=== PATIENT | male | born 1960 | race Caucasian/White ===

== ENCOUNTER 2017-12-27 11:52 | Inpatient (IN) | payer MEDICAID ==
[~2017-12-27] VITALS: Ht 162.6 cm; Wt 63.5 kg
[2017-12-27 12:16] VITALS: BP 114/84
[2017-12-27] MEDS ORDERED: cefTRIAXone 1 GM in NS 55 ML IV STA (12:25)
[2017-12-27] MEDS ORDERED: Albuterol ud Inhalation HHN ONE (12:30)
[2017-12-27] MEDS ORDERED: Morphine Sulfate 2mg/ml Inj IVP ONE (12:30)
[2017-12-27] MEDS ORDERED: Ipratropium 0.02% Inh Soln 2.5ml UD HHN ONE (12:30)
[2017-12-27 13:01] LABS: HEMOGLOBIN 15.4 G/DL (14.2-18.0); MEAN CORPUSCULAR VOLUME 96 FL (80-99); PLATELET COUNT 74 K/UL (150-450); RED BLOOD COUNT 4.49 M/UL (4.70-6.10); RED CELL DISTRIBUTION WIDTH 11.7 % (11.6-14.8); WHITE BLOOD COUNT 10.3 K/UL (4.8-10.8)
[2017-12-27 13:11] LABS: ANION GAP 11 mmol/L (5-15); BLOOD UREA NITROGEN 12 mg/dL (7-18); CALCIUM 8.7 MG/DL (8.5-10.1); CARBON DIOXIDE 27 MMOL/L (21-32); CHLORIDE 93 MMOL/L (98-107); POTASSIUM 3.3 MMOL/L (3.5-5.1); SODIUM 131 MMOL/L (136-145)
[2017-12-27 13:13] LABS: INR 1.1 (0.9-1.1)
[2017-12-27] MEDS ORDERED: NS 1000ml 1,900 ML IVLG ONE (13:30)
[2017-12-27 13:31] LABS: ALANINE AMINOTRANSFERASE 33 U/L (12-78); ALBUMIN/GLOBULIN RATIO 0.6 (1.0-2.7); ALKALINE PHOSPHATASE 75 U/L (46-116); ASPARTATE AMINO TRANSFERASE 65 U/L (15-37); BILIRUBIN,TOTAL 1.6 MG/DL (0.2-1.0); CREATINE KINASE 166 U/L (26-308)
[2017-12-27 13:32] LABS: BILIRUBIN,DIRECT 0.7 MG/DL (0.0-0.3)
[2017-12-27 14:00] VITALS: BP 105/76
[2017-12-27] MEDS ORDERED: TEGRETOL100 MG/5 M PO (15:07)
--- NOTE | 2017-12-27 15:08 | Emergency Room Report ---
History of Present Illness General Chief Complaint: Chest Pain Source: Patient Present Illness HPI Patient with several days of not feeling well. Since yesterday, increased cough , not productive, chills, fevers, dyspnea. Tried taking ibuprofen with some help - last dose 6 am. Pain is pleuritic in chest and back, 04/12 (though looks more distressed by discomfort) - aching. Possible wheezing. 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 Never with pneumonia or ill in this way. Slightly loose stools. H/O seizures, well controlled on Tegretal. Denies diabetes or HTN. Does drink alcohol, not daily. Also daily smoker. No rashes, dysuria. No ill contacts. Allergies: Coded Allergies: No Known Allergies (Unverified , 12/27/17) Patient History Past Medical History: see triage record Social History: Reports: smoking, alcohol use Social History Narrative with daughters Reviewed Nursing Documentation: PMH: Agreed, PSxH: Agreed Nursing Documentation-PMH Past Medical History: No Stated History Review of Systems All Other Systems: negative except mentioned in HPI Physical Exam Vital Signs Date Time Temp Pulse Resp B/P (MAP) Pulse Ox O2 Delivery O2 Flow Rate FiO2 12/27/17 12:06 99.0 120 18 120/80 94 Room Air 99.0 12/27/17 12:43 21 12/27/17 14:00 1.0 Sp02 EP Interpretation: reviewed, abnormal - reviewed as low as interpreted by me General Appearance: GCS 15, mild distress, other - ill appear, hot to touch Head: normocephalic, atraumatic Eyes: bilateral eye normal inspection, bilateral eye PERRL ENT: moist mucus membranes Neck: supple Respiratory: rales - R, wheezing, expiration Cardiovascular #1: tachycardia Cardiovascular #2: 2+ radial (R) Gastrointestinal: normal inspection, non tender, no mass, non-distended, decreased bowel sounds Musculoskeletal: back normal, gait/station normal, normal range of motion Neurologic: alert, oriented x3, grossly normal Psychiatric: mood/affect normal Skin: normal inspection, other - hot Medical Decision Making Diagnostic Impression: Primary Impression: Pneumonia Qualified Codes: J18.1 - Lobar pneumonia, unspecified organism Additional Impression: Elevated lactic acid level ER Course Patient presents with fever, cough and chest pain. DDx: pneumonia, sepsis, bronchitis, AMI. Evaluation with EKG, CXR, labs including BC and lactate. Treatment with IV hydration, analgesia, albuterol. High suspicion, will rx antibiotics. EKG without injury. CXR with wedge infiltrate RUL. Labs with elevated WBC and lactate. Potassium slightly low. Improved with treatment, though still with pain. Respirations improved. Admit med Dr. Bravo. Laboratory Tests Test 12/27/17 12:40 White Blood Count 10.3 K/UL (4.8-10.8) Red Blood Count 4.49 M/UL (4.70-6.10) L Hemoglobin 15.4 G/DL (14.2-18.0) Hematocrit 43.0 % (42.0-52.0) Mean Corpuscular Volume 96 FL (80-99) Mean Corpuscular Hemoglobin 34.2 PG (27.0-31.0) H Mean Corpuscular Hemoglobin Concent 35.7 G/DL (32.0-36.0) Red Cell Distribution Width 11.7 % (11.6-14.8) Platelet Count 74 K/UL (150-450) L Mean Platelet Volume 7.8 FL (6.5-10.1) Neutrophils (%) (Auto) % (45.0-75.0) Lymphocytes (%) (Auto) % (20.0-45.0) Monocytes (%) (Auto) % (1.0-10.0) Eosinophils (%) (Auto) % (0.0-3.0) Basophils (%) (Auto) % (0.0-2.0) Differential Total Cells Counted 100 Neutrophils % (Manual) 74 % (45-75) Lymphocytes % (Manual) 9 % (20-45) L Monocytes % (Manual) 2 % (1-10) Eosinophils % (Manual) 0 % (0-3) Basophils % (Manual) 0 % (0-2) Band Neutrophils 15 % (0-8) H Platelet Estimate Decreased L Platelet Morphology Normal Red Blood Cell Morphology Normal Prothrombin Time 11.2 SEC (9.30-11.50) Prothrombin Time INR 1.1 (0.9-1.1) PTT 33 SEC (23-33) Sodium Level 131 MMOL/L (136-145) L Potassium Level 3.3 MMOL/L (3.5-5.1) L Chloride Level 93 MMOL/L (98-107) L Carbon Dioxide Level 27 MMOL/L (21-32) Anion Gap 11 mmol/L (5-15) Blood Urea Nitrogen 12 mg/dL (7-18) Creatinine 1.0 MG/DL (0.55-1.30) Estimate Glomerular Filtration Rate > 60 mL/min (>60) Glucose Level 122 MG/DL (74-106) H Lactic Acid Level 3.40 mmol/L (0.66-2.22) H Calcium Level 8.7 MG/DL (8.5-10.1) Total Bilirubin 1.6 MG/DL (0.2-1.0) H Direct Bilirubin 0.7 MG/DL (0.0-0.3) H Aspartate Amino Transferase (AST) 65 U/L (15-37) H Alanine Aminotransferase (ALT) 33 U/L (12-78) Alkaline Phosphatase 75 U/L (46-116) Total Creatine Kinase 166 U/L (26-308) Troponin I 0.000 ng/mL (0.000-0.056) Pro-B-Type Natriuretic Peptide 816 pg/mL (0-125) H Total Protein 7.8 G/DL (6.4-8.2) Albumin 3.0 G/DL (3.4-5.0) L Globulin 4.8 g/dL Albumin/Globulin Ratio 0.6 (1.0-2.7) L EKG Diagnostic Results Rate: tachycardiac ST Segments: no acute changes Rhythm Strip Diag. Results EP Interpretation: yes Rhythm: no PVC's, no ectopy, other - ST Chest X-Ray Diagnostic Results Chest X-Ray Diagnostic Results : Chest X-Ray Ordered: Yes # of Views/Limited/Complete: 1 View Indication: Other Interpretation: no effusion, no pneumothorax, other - RUL infiltrate Impression: Other Electronically Signed by: Vickey Harvey MD Last Vital Signs Date Time Temp Pulse Resp B/P (MAP) Pulse Ox O2 Delivery O2 Flow Rate FiO2 12/27/17 20:13 103 18 97 Nasal Cannula 2.0 28 12/27/17 20:00 98.9 120/81 98.9 Status: improved Disposition: ADMITTED INPATIENT Condition: Serious Referrals: NOT CHOSEN SELENA/,REFERRING (PCP) Vickey Harvey M.D. Dec 27, 2017 15:08
[2017-12-27 16:00] VITALS: BP 105/73
[2017-12-27] MEDS ORDERED: Norco 5mg/325mg tab ORAL PRN (16:45)
[2017-12-27] MEDS ORDERED: HYDROcodone/Acetamin 10/325 tab ORAL PRN (16:45)
[2017-12-27] MEDS: Azithromycin 500 MG in D5W 275 ML IV SCH (18:10)
[2017-12-27 20:00] VITALS: BP 120/81
[2017-12-27] MEDS: Albuterol/Ipratropium 3ml neb HHN SCH (20:00)
[2017-12-27 22:40] LABS: APPEARANCE,URINE CLEAR; BILIRUBIN, URINE NEGATIVE (NEGATIVE); GLUCOSE, URINE (UA) NEGATIVE (NEGATIVE); KETONES,URINE NEGATIVE (NEGATIVE); LEUKOCYTE ESTERASE ,URINE NEGATIVE (NEGATIVE); NITRITE,URINE NEGATIVE (NEGATIVE); PH,URINE 7 (4.5-8.0); PROTEIN,URINE 1+ (NEGATIVE); UROBILINOGEN,URINE 4 MG/DL (0.0-1.0)
[2017-12-27 22:44] LABS: COLOR,URINE YELLOW
[2017-12-28] VITALS: BP 134/82
[2017-12-28] MEDS: Albuterol/Ipratropium 3ml neb HHN SCH ×3 (01:28→13:45)
[2017-12-28 04:00] VITALS: BP 129/76
[2017-12-28 08:00] VITALS: BP 111/80
[2017-12-28 08:53] LABS: HEMATOCRIT 34.9 % (42.0-52.0); HEMOGLOBIN 12.6 G/DL (14.2-18.0); MEAN CORPUSCULAR VOLUME 96 FL (80-99); PLATELET COUNT 53 K/UL (150-450); RED BLOOD COUNT 3.64 M/UL (4.70-6.10); RED CELL DISTRIBUTION WIDTH 11.8 % (11.6-14.8); WHITE BLOOD COUNT 7.1 K/UL (4.8-10.8)
[2017-12-28] MEDS ORDERED: Heparin 5000 units/ml inj SUBQ SCH (09:00)
[2017-12-28 09:16] LABS: ALANINE AMINOTRANSFERASE 20 U/L (12-78); ALBUMIN 2.1 G/DL (3.4-5.0); ALBUMIN/GLOBULIN RATIO 0.6 (1.0-2.7); ALKALINE PHOSPHATASE 56 U/L (46-116); ANION GAP 8 mmol/L (5-15); ASPARTATE AMINO TRANSFERASE 29 U/L (15-37); BILIRUBIN,TOTAL 0.9 MG/DL (0.2-1.0); BLOOD UREA NITROGEN 8 mg/dL (7-18); CALCIUM 7.9 MG/DL (8.5-10.1); CARBON DIOXIDE 25 MMOL/L (21-32); CHLORIDE 97 MMOL/L (98-107); CREATININE 0.9 MG/DL (0.55-1.30); SODIUM 130 MMOL/L (136-145)
[2017-12-28 09:31] LABS: POTASSIUM 2.6 MMOL/L (3.5-5.1)
--- NOTE | 2017-12-28 09:54 | Diagnostic Imaging Report ---
Indication: Reason For Exam: COUGH Technique: XRAY Chest 1v Comparison:None Findings: There is opacification of a portion of the right upper lobe. Heart is normal in size. Remaining lungs are clear. No pleural fluid. Hill-Sachs deformity of the left shoulder is noted, likely from previous anterior dislocation. Impression: Right upper lobe partial consolidation consistent with pneumonia. Hill-Sachs deformity in the left shoulder consistent with previous anterior dislocation.
--- NOTE | 2017-12-28 09:55 | Diagnostic Imaging Report ---
Indication: Reason For Exam: SOB Technique: XRAY Chest 1v. Comparison: 12/27/2017 Findings: The cardiomediastinal silhouette is unchanged. Right upper lobe partial consolidation is again seen. Impression: Right upper lobe pneumonia. Lateral view would be helpful to confirm that this is in the lobe rather than the superior portion of the lower lobe. No significant change from prior examination.
[2017-12-28 12:00] VITALS: BP 112/82
[2017-12-28] MEDS ORDERED: carBAMazepine 200mg tab ORAL SCH (12:00)
--- NOTE | 2017-12-28 12:22 | History and Physical ---
History of Present Illness General Date patient seen: Dec 28, 2017 Reason for Hospitalization: PNA Present Illness HPI 57 y/o male with a PMH of seizures on AED (last sz 10/2017) presented to ED yesterday with intermittent chest pain, sob, cough and subjective fevers x 2 days. Also reports nausea with emesis x 1 2 days ago that was NBNB. In hospital , EKG showed sinus tachycardia and initial troponin was negative. Patient was noted to have right upper lobe partial consolidation consistent with pneumonia and was started on IV ceftriaxone and azithromycin. Patient denies any ill contacts. Patient currently reports SOB but with improvement. States chest pain is non-radiating and is intermittent in nature upon deep inspirations. Reports subjective fevers and chills, with Tmax in hospital 99.0. Currently denies nausea, vomiting, abdominal pain, seizures, headaches. Reports compliance with his seizure medications. Reports occasional alcohol use. Denies illicit drug use or tobacco. Allergies: Coded Allergies: No Known Allergies (Unverified , 12/27/17) Medication History Miscellaneous Medications Carbamazepine (Tegretol), 200 MG PO, (Reported) Patient History Limited by: language barrier History Provided By: Patient, Family Member Healthcare decision maker Resuscitation status Advanced Directive on File Review of Systems Constitutional: Reports: chills, fever, weakness Eye: Reports: no symptoms ENT: Reports: no symptoms Respiratory: Reports: cough, shortness of breath Cardiovascular: Reports: chest pain Gastrointestinal: Reports: no symptoms Genitourinary: Reports: no symptoms Musculoskeletal: Reports: no symptoms Skin: Reports: no symptoms Psychiatric: Reports: no symptoms Neurological: Reports: no symptoms Endocrine: Reports: no symptoms Hematologic/Lymphatic: Reports: no symptoms Physical Exam General Appearance: alert, mild distress HEENT: normocephalic, atraumatic Neck: non-tender, normal alignment, supple Respiratory/Chest: chest wall non-tender, decreased breath sounds Cardiovascular/Chest: normal peripheral pulses, normal rate, regular rhythm Abdomen: normal bowel sounds, non tender Skin Exam: normal pigmentation, warm/dry 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, no motor/sensory deficits, alert, oriented x 3 Last 24 Hour Vital Signs Date Time Temp Pulse Resp B/P (MAP) Pulse Ox O2 Delivery O2 Flow Rate FiO2 12/28/17 08:00 99.0 95 20 111/80 98 99.0 12/28/17 07:10 96 21 96 Nasal Cannula 2.0 28 12/28/17 07:08 93 20 95 Nasal Cannula 2.0 28 12/28/17 07:08 Nasal Cannula 2.0 28 12/28/17 07:08 28 12/28/17 07:07 95 Nasal Cannula 2.0 28 12/28/17 04:00 98.9 95 20 129/76 97 Nasal Cannula 2.0 98.9 12/28/17 04:00 Nasal Cannula 2.0 12/28/17 01:42 94 21 96 Nasal Cannula 2.0 28 12/28/17 01:28 28 12/28/17 01:27 94 21 96 Nasal Cannula 2.0 28 12/28/17 00:00 Nasal Cannula 2.0 12/28/17 00:00 99.1 98 21 134/82 97 99.1 12/27/17 20:13 103 18 97 Nasal Cannula 2.0 28 12/27/17 20:04 95 Nasal Cannula 2.0 28 12/27/17 20:04 Nasal Cannula 2.0 28 12/27/17 20:02 101 20 95 Nasal Cannula 2.0 28 12/27/17 20:00 98.9 73 21 120/81 96 98.9 12/27/17 20:00 Nasal Cannula 2.0 12/27/17 16:00 98.5 97 20 105/73 96 98.5 12/27/17 15:08 101.7 108 29 105/76 90 Nasal Cannula 1.0 21 101.7 12/27/17 14:00 101.7 108 29 105/76 90 Nasal Cannula 1.0 101.7 12/27/17 13:02 99.0 12/27/17 13:01 99.0 12/27/17 12:57 105 26 98 Room Air 21 12/27/17 12:55 112 27 Room Air 21 12/27/17 12:43 114 29 95 Room Air 21 Intake and Output 12/27/17 12/28/17 19:00 07:00 Intake Total 1055 ml 575 ml Balance 1055 ml 575 ml Intake Oral 0 ml 300 ml IV Total 1055 ml 275 ml # Voids 1 Laboratory Tests Test 12/27/17 12:40 12/27/17 18:50 12/27/17 22:20 12/28/17 08:25 White Blood Count 10.3 K/UL (4.8-10.8) 7.1 K/UL (4.8-10.8) Red Blood Count 4.49 M/UL (4.70-6.10) L 3.64 M/UL (4.70-6.10) L Hemoglobin 15.4 G/DL (14.2-18.0) 12.6 G/DL (14.2-18.0) L Hematocrit 43.0 % (42.0-52.0) 34.9 % (42.0-52.0) L Mean Corpuscular Volume 96 FL (80-99) 96 FL (80-99) Mean Corpuscular Hemoglobin 34.2 PG (27.0-31.0) H 34.5 PG (27.0-31.0) H Mean Corpuscular Hemoglobin Concent 35.7 G/DL (32.0-36.0) 36.0 G/DL (32.0-36.0) Red Cell Distribution Width 11.7 % (11.6-14.8) 11.8 % (11.6-14.8) Platelet Count 74 K/UL (150-450) L 53 K/UL (150-450) L Mean Platelet Volume 7.8 FL (6.5-10.1) 8.6 FL (6.5-10.1) Neutrophils (%) (Auto) % (45.0-75.0) % (45.0-75.0) Lymphocytes (%) (Auto) % (20.0-45.0) % (20.0-45.0) Monocytes (%) (Auto) % (1.0-10.0) % (1.0-10.0) Eosinophils (%) (Auto) % (0.0-3.0) % (0.0-3.0) Basophils (%) (Auto) % (0.0-2.0) % (0.0-2.0) Differential Total Cells Counted 100 100 Neutrophils % (Manual) 74 % (45-75) 79 % (45-75) H Lymphocytes % (Manual) 9 % (20-45) L 18 % (20-45) L Monocytes % (Manual) 2 % (1-10) 3 % (1-10) Eosinophils % (Manual) 0 % (0-3) 0 % (0-3) Basophils % (Manual) 0 % (0-2) 0 % (0-2) Band Neutrophils 15 % (0-8) H 0 % (0-8) Platelet Estimate Decreased L Decreased L Platelet Morphology Normal Normal Red Blood Cell Morphology Normal Normal Prothrombin Time 11.2 SEC (9.30-11.50) Prothromb Time International Ratio 1.1 (0.9-1.1) Activated Partial Thromboplast Time 33 SEC (23-33) Sodium Level 131 MMOL/L (136-145) L 130 MMOL/L (136-145) L Potassium Level 3.3 MMOL/L (3.5-5.1) L 2.6 MMOL/L (3.5-5.1) *L Chloride Level 93 MMOL/L (98-107) L 97 MMOL/L (98-107) L Carbon Dioxide Level 27 MMOL/L (21-32) 25 MMOL/L (21-32) Anion Gap 11 mmol/L (5-15) 8 mmol/L (5-15) Blood Urea Nitrogen 12 mg/dL (7-18) 8 mg/dL (7-18) Creatinine 1.0 MG/DL (0.55-1.30) 0.9 MG/DL (0.55-1.30) Estimat Glomerular Filtration Rate > 60 mL/min (>60) > 60 mL/min (>60) Glucose Level 122 MG/DL (74-106) H 230 MG/DL (74-106) #H Lactic Acid Level 3.40 mmol/L (0.66-2.22) H 3.90 mmol/L (0.66-2.22) H Calcium Level 8.7 MG/DL (8.5-10.1) 7.9 MG/DL (8.5-10.1) L Total Bilirubin 1.6 MG/DL (0.2-1.0) H 0.9 MG/DL (0.2-1.0) Direct Bilirubin 0.7 MG/DL (0.0-0.3) H Aspartate Amino Transf (AST/SGOT) 65 U/L (15-37) H 29 U/L (15-37) Alanine Aminotransferase (ALT/SGPT) 33 U/L (12-78) 20 U/L (12-78) Alkaline Phosphatase 75 U/L (46-116) 56 U/L (46-116) Total Creatine Kinase 166 U/L (26-308) Troponin I 0.000 ng/mL (0.000-0.056) Pro-B-Type Natriuretic Peptide 816 pg/mL (0-125) H Total Protein 7.8 G/DL (6.4-8.2) 5.8 G/DL (6.4-8.2) L Albumin 3.0 G/DL (3.4-5.0) L 2.1 G/DL (3.4-5.0) L Globulin 4.8 g/dL 3.7 g/dL Albumin/Globulin Ratio 0.6 (1.0-2.7) L 0.6 (1.0-2.7) L Urine Color Yellow Urine Appearance Clear Urine pH 7 (4.5-8.0) Urine Specific [place] 1.005 (1.005-1.035) Urine Protein 1+ (NEGATIVE) H Urine Glucose (UA) Negative (NEGATIVE) Urine Ketones Negative (NEGATIVE) Urine Occult Blood 1+ (NEGATIVE) H Urine Nitrite Negative (NEGATIVE) Urine Bilirubin Negative (NEGATIVE) Urine Urobilinogen 4 MG/DL (0.0-1.0) H Urine Leukocyte Esterase Negative (NEGATIVE) Urine RBC 2-4 /HPF (0 - 0) H Urine WBC 0-2 /HPF (0 - 0) Urine Squamous Epithelial Cells None /LPF (NONE/OCC) Urine Bacteria Few /HPF (NONE) Test 12/28/17 08:30 Lactic Acid Level 2.80 mmol/L (0.66-2.22) H Microbiology Date/Time Source Procedure Growth Status 12/27/17 22:20 Sputum Gram Stain - Final Resulted 12/27/17 22:20 Sputum Sputum Culture Pending Resulted 12/27/17 20:23 Nasal Nares Influenza Types A,B Antigen (ASHLEY) - Final Complete Height (Feet): 5 Height (Inches): 4.00 Weight (Pounds): 140 Medications Current Medications Medications (Trade) Dose Ordered Sig/Levi Route PRN Reason Start Time Stop Time Status Last Admin Dose Admin Acetaminophen (Tylenol) 650 mg Q6H PRN ORAL Mild Pain/Temp > 100.5 12/27/17 16:45 01/26/18 16:44 Acetaminophen/ Hydrocodone Bitart ([place] 10/325) 1 tab Q4H PRN ORAL Severe Pain 12/27/17 16:45 01/03/18 16:44 Acetaminophen/ Hydrocodone Bitart ([place] 5/325) 1 tab Q4H PRN ORAL Moderate Pain (Pain Scale 4-6) 12/27/17 16:45 01/03/18 16:44 Albuterol/ Ipratropium (Albuterol/ Ipratropium) 3 ml Q6HRT HHN 12/27/17 19:00 01/01/18 18:59 12/28/17 07:08 Azithromycin 500 mg/Dextrose 275 ml @ 275 mls/hr Q24HRS IV 12/27/17 18:00 01/02/18 18:59 12/27/17 18:10 Carbamazepine (TEGretol) 200 mg Q12HR ORAL 12/28/17 12:00 01/27/18 11:59 Ceftriaxone Sodium 1 gm/ Sodium Chloride 55 ml @ 110 mls/hr Q24H IVPB 12/28/17 13:00 01/04/18 12:59 Ondansetron HCl (Zofran) 4 mg Q4H PRN IVP Nausea & Vomiting 12/27/17 16:45 01/26/18 16:44 Potassium Chloride 40 meq/ Dextrose 570 ml @ 125 mls/hr ONCE ONCE IVPB 12/28/17 13:30 12/28/17 18:03 Potassium Chloride 100 ml @ 100 mls/hr Q1H IVPB 12/28/17 11:15 12/28/17 13:14 12/28/17 11:25 Potassium Chloride (K-Dur) 40 meq ONCE ONCE ORAL 12/28/17 20:00 12/28/17 20:01 Sodium Chloride 1,000 ml @ 100 mls/hr Q10H IV 12/28/17 17:00 01/27/18 16:59 Assessment/Plan Problem List: (1) Sepsis ICD Codes: A41.9 - Sepsis, unspecified organism SNOMED: 15445368 (2) Hypokalemia ICD Codes: E87.6 - Hypokalemia SNOMED: 70945600 (3) Thrombocytopenia ICD Codes: D69.6 - Thrombocytopenia, unspecified SNOMED: 389943942 (4) Seizure disorder ICD Codes: G40.909 - Epilepsy, unspecified, not intractable, without status epilepticus SNOMED: 160947844 (5) Pneumonia ICD Codes: J18.9 - Pneumonia, unspecified organism SNOMED: 294054385 Qualifiers: Qualified Codes: J18.1 - Lobar pneumonia, unspecified organism (6) Chest pain ICD Codes: R07.9 - Chest pain, unspecified SNOMED: 29095214 Status: progressing Status Narrative - Admit to inpatient --> transfer to tele given chest pain and hypokalemia - Hematology consulted for thrombocytopenia (?bone marrow suppression with tegretol) - trend plt - will avoid heparin at this time - trend trops: 0.0 --> - repeat EKG NSR - cp likely 2/2 PNA but rule out ACS - HHN prn - f/u blood cultures x 2 - trend lactic acid - serial CXR, check lateral view - check ABGs - monitor and replete lytes prn - continue home tregretol 200mg PO qd Spent 55 minutes with >50% spent in care and coordination of patient. D/w patient, RN, family, and hematology regarding plan of care. Once patient is medically cleared, I anticipate the patient to be discharged to : home [place] Nicolas N.P. Dec 28, 2017 12:22
[2017-12-28] MEDS ORDERED: carBAMazepine 200mg tab ORAL ONE ×2 (12:30→13:00)
[2017-12-28] MEDS ORDERED: cefTRIAXone 1 GM in NS 55 ML IVPB SCH ×2 (13:00→17:00)
[2017-12-28] MEDS ORDERED: Potassium Chloride 40 MEQ in D5W 500ml 550 ML IVPB ONE (13:30)
[2017-12-28 15:54] VITALS: BP 110/75
--- NOTE | 2017-12-28 16:16 | Cardiology Report ---
APPROVED REPORT EKG Measurement Heart [id number] DC 130P68 [id number] Sinus tachycardia Possible Left atrial enlargement Left axis deviation Abnormal ECG
[2017-12-28] MEDS ORDERED: NS w/KCl 20mEq 1,000 ML IV SCH (17:00)
[2017-12-28] MEDS: Azithromycin 500 MG in D5W 275 ML IV SCH (18:05)
[2017-12-28] MEDS: NS w/KCl 20mEq 1,000 ML IV SCH ×2 (19:00→19:36)
[2017-12-28] MEDS ORDERED: Norco 5mg/325mg tab ORAL PRN (19:15)
[2017-12-28] MEDS ORDERED: HYDROcodone/Acetamin 10/325 tab ORAL PRN (19:15)
[2017-12-28 19:31] LABS: ANION GAP 8 mmol/L (5-15); BLOOD UREA NITROGEN 6 mg/dL (7-18); CALCIUM 8.2 MG/DL (8.5-10.1); CARBON DIOXIDE 25 MMOL/L (21-32); CHLORIDE 98 MMOL/L (98-107); CREATININE 0.9 MG/DL (0.55-1.30); SODIUM 131 MMOL/L (136-145)
[2017-12-28 20:00] VITALS: BP 110/73
--- NOTE | 2017-12-28 21:45 | Consultation ---
DATE OF CONSULTATION: 12/28/2017 HEMATOLOGY/ONCOLOGY CONSULTATION CONSULTING PHYSICIAN: Amauri Restrepo M.D. REFERRING PHYSICIAN: Beth Bravo M.D. REASON FOR CONSULTATION: Evaluation of thrombocytopenia. IDENTIFYING DATA: Dear Dr. Bravo, The patient is a pleasant 57-year-old male, first time here at [facility]. He has a past medical history, which is significant for seizures, on antiepileptics, at this time presents with fevers and chills that are subjective for the past several days with emesis for the past 1 to 2 days. He is admitted to the hospital. EKG performed shows sinus tachycardia. Initial troponin was negative, but noted to have a partial lobe consolidation consistent with pneumonia and began on antibiotics. Denies any ill contacts. His chest pain has been non-remitting. Reports occasional alcohol use. Denies any illicit drug use or tobacco. The patient noted to have thrombocytopenia, which is down trend at this time. Hematology Service consulted. PAST MEDICAL HISTORY: As noted above. ALLERGIES: No known drug allergies. MEDICATIONS: Carbamazepine and Tegretol. SOCIAL HISTORY: Occasional alcohol abuse. No illicit drug use. No tobacco. REVIEW OF SYSTEMS: CONSTITUTIONAL: Fever and chills have been reported. SKIN: No rashes, lumps, or itching. HEENT: No headache, hearing or vision changes. BREASTS: No lumps, pain, or discharge. PULMONARY: No cough, sputum, or shortness of breath. GASTROINTESTINAL: No nausea, vomiting, or diarrhea. GENITOURINARY: No dysuria, frequency, or urgency. MUSCULOSKELETAL: No joint swelling, muscle pain, or trauma. PHYSICAL EXAMINATION: GENERAL: No acute distress. VITAL SIGNS: Reviewed. PULMONARY: Decreased breath sounds. CARDIOVASCULAR: Regular rate. No S3 or S4. ABDOMEN: Soft, nontender, and nondistended. EXTREMITIES: No swelling or edema. LABORATORY AND DIAGNOSTIC DATA: Imaging, chest x-ray from today showed right upper lobe pneumonia, unchanged from the prior exam. Labs, WBC of 7.3, hemoglobin 12.6, hematocrit 35 and platelet count 248,000. ASSESSMENT AND RECOMMENDATIONS: 1. Thrombocytopenia, potentially secondary to infection such as pneumonia versus antibiotics that the patient is on. In addition, the patient may have cirrhosis. We will obtain ultrasound of the abdomen as well as hepatitis panel and HIV to evaluate further. The patient also on antiepileptics, which can contribute to thrombocytopenia. 2. Anemia due to underlying chronic disease. Continue to closely monitor at this time. 3. Subjective fever and chills, likely secondary to pneumonia. 4. Pneumonia, right upper lobe, likely community acquired. 5. Hypokalemia, replete potassium as needed. 6. Lactic acidosis, potentially secondary to dehydration versus pneumonia, infection, sepsis. I appreciate consultation. Amauri Restrepo M.D. DR: DESIRE JOB#: [id number] CC:
[2017-12-29] VITALS: BP 122/80
[2017-12-29] MEDS: Albuterol/Ipratropium 3ml neb HHN SCH ×5 (01:25→23:37)
[2017-12-29 04:00] VITALS: BP 127/82
[2017-12-29] MEDS: NS w/KCl 20mEq 1,000 ML IV SCH ×3 (06:00→17:00)
[2017-12-29 08:00] VITALS: BP 113/80
[2017-12-29 08:33] LABS: HEMATOCRIT 33.6 % (42.0-52.0); MEAN CORPUSCULAR VOLUME 96 FL (80-99); PLATELET COUNT 68 K/UL (150-450); RED CELL DISTRIBUTION WIDTH 11.7 % (11.6-14.8); WHITE BLOOD COUNT 4.8 K/UL (4.8-10.8)
[2017-12-29 08:51] LABS: ANION GAP 9 mmol/L (5-15); BLOOD UREA NITROGEN 5 mg/dL (7-18); CALCIUM 8.3 MG/DL (8.5-10.1); CARBON DIOXIDE 23 MMOL/L (21-32); CHLORIDE 103 MMOL/L (98-107); CREATININE 0.6 MG/DL (0.55-1.30); POTASSIUM 3.6 MMOL/L (3.5-5.1); SODIUM 135 MMOL/L (136-145)
[2017-12-29] MEDS ORDERED: carBAMazepine 200mg tab ORAL SCH ×2 (09:00)
--- NOTE | 2017-12-29 10:28 | Diagnostic Imaging Report ---
Indication:Abdominal pain Technique: Grayscale and duplex Doppler imaging of the abdomen performed. Comparison: None Findings: Study is very limited due to bowel gas. Main portal vein is patent by Doppler. Gallbladder is unremarkable. The liver appears slightly echogenic without obvious surface nodularity and is normal in size. Pancreas not well seen. Aorta is not well seen. There is a right 3 cm. renal cyst noted. There is no hydronephrosis. There is no ascites. No biliary ductal dilatation is appreciated. CBD is 3 mm. IMPRESSION: Diagnostically limited study. Probable fatty liver. Right renal cyst
[2017-12-29 12:00] VITALS: BP 114/73
--- NOTE | 2017-12-29 12:23 | Diagnostic Imaging Report ---
Indication: Dyspnea Comparison: 12/28/2017 2 views of the chest obtained. Dense right upper lobe consolidation demonstrated. No change seen. Heart size remains normal. IMPRESSION: Right upper lobe pneumonia. No change
--- NOTE | 2017-12-29 13:42 | Consultation ---
History of Present Illness General Date patient seen: Dec 29, 2017 Chief Complaint: Chest Pain Present Illness HPI 57 year old male with hx of smoking, ETOH , presented to ER with several days of not feeling well, cough, not productive, chills, fevers, dyspnea. Pain is pleuritic in chest and back, 6/10 CHAPMAN. Pt was tachycardic in ER and his CXR showed dense RUL. Pt is admitted to telemetry for tachycardia. Allergies: Coded Allergies: No Known Allergies (Unverified , 12/27/17) Medication History Miscellaneous Medications Carbamazepine (Tegretol), 200 MG PO, (Reported) Patient History Healthcare decision maker Resuscitation status Advanced Directive on File Past Medical/Surgical History Past Medical/Surgical History: (1) Seizure disorder Review of Systems Constitutional: Reports: fever, malaise Eye: Reports: no symptoms ENT: Reports: no symptoms Respiratory: Reports: no symptoms Physical Exam General Appearance: WD/WN Lines, tubes and drains: peripheral HEENT: normocephalic, atraumatic Neck: non-tender, normal alignment Respiratory/Chest: chest wall non-tender, lungs clear Cardiovascular/Chest: normal peripheral pulses, normal rate Abdomen: normal bowel sounds Genitourinary/Rectal: normal genital exam Extremities: normal range of motion Last 24 Hour Vital Signs Date Time Temp Pulse Resp B/P (MAP) Pulse Ox O2 Delivery O2 Flow Rate FiO2 12/29/17 13:03 86 21 99 Nasal Cannula 2.0 28 12/29/17 13:00 28 12/29/17 12:55 89 20 97 Nasal Cannula 2.0 12/29/17 12:00 97.8 72 19 114/73 96 Nasal Cannula 2.0 97.8 12/29/17 08:00 98.2 72 20 113/80 98 Nasal Cannula 2.0 98.2 12/29/17 08:00 70 12/29/17 07:53 82 21 99 Nasal Cannula 2.0 28 12/29/17 07:52 36 12/29/17 07:42 Nasal Cannula 2.0 28 12/29/17 07:40 95 Nasal Cannula 2.0 28 12/29/17 07:39 76 18 95 Nasal Cannula 2.0 28 12/29/17 04:00 98.6 77 21 127/82 99 Nasal Cannula 2.0 98.6 12/29/17 03:37 82 12/29/17 01:26 82 21 99 Nasal Cannula 2.0 28 12/29/17 01:20 97 18 96 Nasal Cannula 2.0 28 12/29/17 01:20 36 12/29/17 00:00 98.8 82 20 122/80 97 Nasal Cannula 2.0 98.8 12/28/17 23:56 84 12/28/17 20:00 99.7 94 20 110/73 98 Nasal Cannula 2.0 99.7 12/28/17 19:14 Nasal Cannula 2.0 28 12/28/17 19:14 Nasal Cannula 2.0 28 12/28/17 19:02 104 12/28/17 19:00 Nasal Cannula 2.0 28 12/28/17 19:00 97 Nasal Cannula 2.0 28 12/28/17 15:54 97.7 91 18 110/75 98 Nasal Cannula 2.0 97.7 12/28/17 13:46 98 20 98 Nasal Cannula 2.0 28 12/28/17 13:40 28 12/28/17 13:40 96 20 95 Nasal Cannula 2.0 28 Intake and Output 12/28/17 12/29/17 19:00 07:00 Intake Total 120 ml 1100 ml Balance 120 ml 1100 ml Intake Oral 120 ml IV Total 1100 ml # Voids 3 Laboratory Tests Test 12/28/17 18:55 12/29/17 07:44 Sodium Level 131 MMOL/L (136-145) L 135 MMOL/L (136-145) L Potassium Level 3.0 MMOL/L (3.5-5.1) L 3.6 MMOL/L (3.5-5.1) Chloride Level 98 MMOL/L (98-107) 103 MMOL/L (98-107) Carbon Dioxide Level 25 MMOL/L (21-32) 23 MMOL/L (21-32) Anion Gap 8 mmol/L (5-15) 9 mmol/L (5-15) Blood Urea Nitrogen 6 mg/dL (7-18) L 5 mg/dL (7-18) L Creatinine 0.9 MG/DL (0.55-1.30) 0.6 MG/DL (0.55-1.30) Estimat Glomerular Filtration Rate > 60 mL/min (>60) > 60 mL/min (>60) Glucose Level 266 MG/DL (74-106) H 109 MG/DL (74-106) #H Lactic Acid Level 3.60 mmol/L (0.66-2.22) H Calcium Level 8.2 MG/DL (8.5-10.1) L 8.3 MG/DL (8.5-10.1) L Magnesium Level 1.4 MG/DL (1.8-2.4) L 1.7 MG/DL (1.8-2.4) L Troponin I 0.000 ng/mL (0.000-0.056) Hepatitis A IgM Antibody Pending Hepatitis B Surface Antigen Pending Hepatitis B Core IgM Antibody Pending Hepatitis C Antibody Pending HIV (1&2) Antibody Rapid Negative (NEGATIVE) White Blood Count 4.8 K/UL (4.8-10.8) Red Blood Count 3.50 M/UL (4.70-6.10) L Hemoglobin 12.0 G/DL (14.2-18.0) L Hematocrit 33.6 % (42.0-52.0) L Mean Corpuscular Volume 96 FL (80-99) Mean Corpuscular Hemoglobin 34.4 PG (27.0-31.0) H Mean Corpuscular Hemoglobin Concent 35.8 G/DL (32.0-36.0) Red Cell Distribution Width 11.7 % (11.6-14.8) Platelet Count 68 K/UL (150-450) L Mean Platelet Volume 8.1 FL (6.5-10.1) Neutrophils (%) (Auto) % (45.0-75.0) Lymphocytes (%) (Auto) % (20.0-45.0) Monocytes (%) (Auto) % (1.0-10.0) Eosinophils (%) (Auto) % (0.0-3.0) Basophils (%) (Auto) % (0.0-2.0) Differential Total Cells Counted 100 Neutrophils % (Manual) 62 % (45-75) Lymphocytes % (Manual) 29 % (20-45) Monocytes % (Manual) 9 % (1-10) Eosinophils % (Manual) 0 % (0-3) Basophils % (Manual) 0 % (0-2) Band Neutrophils 0 % (0-8) Platelet Estimate Decreased L Platelet Morphology Normal Red Blood Cell Morphology Normal Height (Feet): 5 Height (Inches): 4.00 Weight (Pounds): 140 Medications Current Medications Medications (Trade) Dose Ordered Sig/Levi Route PRN Reason Start Time Stop Time Status Last Admin Dose Admin Acetaminophen (Tylenol) 650 mg Q6H PRN ORAL Mild Pain/Temp > 100.5 12/28/17 19:15 01/26/18 19:14 Acetaminophen/ Hydrocodone Bitart (Vale 10/325) 1 tab Q4H PRN ORAL Severe Pain SCALE 7-10 12/28/17 19:15 01/04/18 19:14 Acetaminophen/ Hydrocodone Bitart (Vale 5/325) 1 tab Q4H PRN ORAL Moderate Pain (Pain Scale 4-6) 12/28/17 19:15 01/03/18 19:14 Albuterol/ Ipratropium (Albuterol/ Ipratropium) 3 ml Q6HRT HHN 12/29/17 01:00 01/03/18 00:59 12/29/17 12:55 Azithromycin 500 mg/Dextrose 275 ml @ 275 mls/hr Q24HRS IV 12/29/17 18:00 01/02/18 18:01 Carbamazepine (TEGretol) 200 mg DAILY ORAL 12/29/17 09:00 01/28/18 08:59 12/29/17 10:06 Ceftriaxone Sodium 1 gm/ Sodium Chloride 55 ml @ 110 mls/hr Q24H IVPB 12/29/17 17:00 01/04/18 16:59 Ondansetron HCl (Zofran) 4 mg Q4H PRN IVP Nausea & Vomiting 12/28/17 19:15 01/26/18 19:14 Sodium Chloride 1,000 ml @ 100 mls/hr Q10H IV 12/28/17 19:00 01/27/18 16:59 12/29/17 06:00 Assessment/Plan Problem List: (1) Pneumonia ICD Codes: J18.9 - Pneumonia, unspecified organism SNOMED: 553097393 Qualifiers: Qualified Codes: J18.1 - Lobar pneumonia, unspecified organism (2) Sepsis ICD Codes: A41.9 - Sepsis, unspecified organism SNOMED: 05985955 (3) Tachycardia ICD Codes: R00.0 - Tachycardia, unspecified SNOMED: 1648884 Assessment/Plan respiratory treatment IV abx check sputum check CT scan to rule post obstructive pneumonia, hem to follow for low PLT. LORENA MURO Dec 29, 2017 13:42
[2017-12-29] MEDS ORDERED: Tubing IV Secondary IV ONE (15:00)
--- NOTE | 2017-12-29 15:17 | Diagnostic Imaging Report ---
Indication: Chest pain Technique: Continuous helical transaxial imaging of the chest was obtained from the thoracic inlet to the upper abdomen after intravenous nonionic contrast administration. Coronal 2-D reformats were also obtained. Automatic Exposure Control was utilized. Total Dose length Product (DLP): 687.[address] Dose Index Volume (CTDIvol): 16.29 mGy Comparison: none Findings: There is a dense focus of consolidation air space disease in the right upper lobe consistent with pneumonia. Trace basilar pleural effusions are present. There is mild posterior basilar atelectasis. Hiatal hernia is present. Small nodes seen in the mediastinum. The liver is hypodense consistent with fatty infiltration. There is a suspected nonobstructive stone within the visualized part of the right kidney measuring 3 mm. Accessory spleen noted. IMPRESSION: Right upper lobe pneumonia. Trace bilateral pleural effusions. Mild basal atelectasis. Fatty liver Accessory spleen Small hiatal hernia Tiny nonobstructive stone right kidney. The CT scanner at [facility] is accredited by the [employer] and the scans are performed using dose optimization techniques as appropriate to a performed exam including Automatic Exposure control.
[2017-12-29 16:00] VITALS: BP 107/68
[2017-12-29] MEDS ORDERED: Norco 5mg/325mg tab ORAL PRN (17:00)
[2017-12-29] MEDS ORDERED: HYDROcodone/Acetamin 10/325 tab ORAL PRN (17:00)
[2017-12-29] MEDS ORDERED: cefTRIAXone 1 GM in NS 55 ML IVPB SCH ×4 (17:00)
--- NOTE | 2017-12-29 17:22 | General Progress Note ---
Assessment/Plan Problem List: (1) Severe sepsis ICD Codes: A41.9 - Sepsis, unspecified organism; R65.20 - Severe sepsis without septic shock SNOMED: 75926913 (2) Lobar pneumonia Assessment & Plan: R upper lobe PNA ICD Codes: J18.1 - Lobar pneumonia, unspecified organism SNOMED: 172737887 (3) Lactic acidosis ICD Codes: E87.2 - Acidosis SNOMED: 30209152 (4) Thrombocytopenia ICD Codes: D69.6 - Thrombocytopenia, unspecified SNOMED: 111458766 (5) Seizure disorder ICD Codes: G40.909 - Epilepsy, unspecified, not intractable, without status epilepticus SNOMED: 573509593 (6) Hypokalemia ICD Codes: E87.6 - Hypokalemia SNOMED: 13185373 (7) Hyponatremia ICD Codes: E87.1 - Hypo-osmolality and hyponatremia SNOMED: 32807539 (8) Hypomagnesemia ICD Codes: E83.42 - Hypomagnesemia SNOMED: 042766688 Status: stable Assessment/Plan - Hematology consulted for thrombocytopenia (?bone marrow suppression with tegretol) - Trend plt - Will avoid heparin at this time - trop neg - repeat EKG NSR - Appreciate pulm consult - Cont IV ceftriaxone and azithro for likely CAP - CT chest ordered - Duonebs ATC and PRN - Mucinex BID - f/u blood cultures x 2--neg - flu neg - trend lactic acid - monitor and replete lytes prn - IVFs - continue home tregretol 200mg PO qd for now. pt will need close f/u with pCP - pain control, bowel regimen - supportive care - possible d/c tomorrow w/ PO abx D/w pt, RN, SW/CM, pulm, hematology regarding mgmt and dispo Subjective Date patient seen: Dec 29, 2017 Time patient seen: 17:00 ROS Limited/Unobtainable: No Constitutional: Reports: weakness HEENT: Reports: no symptoms Cardiovascular: Reports: no symptoms Respiratory: Reports: cough, shortness of breath Gastrointestinal/Abdominal: Reports: no symptoms Genitourinary: Reports: no symptoms Neurologic/Psychiatric: Reports: no symptoms Endocrine: Reports: no symptoms Hematologic/Lymphatic: Reports: no symptoms Allergies: Coded Allergies: No Known Allergies (Unverified , 12/27/17) All Systems: reviewed and negative except above Subjective No acute o/n events Afebrile, VSS Pt feeling better. Cough, SOB improving. Denies f/c, n/v, d/c, chest pain Objective Last 24 Hour Vital Signs Date Time Temp Pulse Resp B/P (MAP) Pulse Ox O2 Delivery O2 Flow Rate FiO2 12/29/17 16:00 98.7 80 18 107/68 96 Nasal Cannula 2.0 98.7 12/29/17 13:03 86 21 99 Nasal Cannula 2.0 28 12/29/17 13:00 28 12/29/17 12:55 89 20 97 Nasal Cannula 2.0 28 12/29/17 12:00 97.8 72 19 114/73 96 Nasal Cannula 2.0 97.8 12/29/17 08:00 98.2 72 20 113/80 98 Nasal Cannula 2.0 98.2 12/29/17 08:00 70 12/29/17 07:53 82 21 99 Nasal Cannula 2.0 28 12/29/17 07:52 36 12/29/17 07:42 Nasal Cannula 2.0 28 12/29/17 07:40 95 Nasal Cannula 2.0 28 12/29/17 07:39 76 18 95 Nasal Cannula 2.0 28 12/29/17 04:00 98.6 77 21 127/82 99 Nasal Cannula 2.0 98.6 12/29/17 03:37 82 12/29/17 01:26 82 21 99 Nasal Cannula 2.0 28 12/29/17 01:20 97 18 96 Nasal Cannula 2.0 28 12/29/17 01:20 36 12/29/17 00:00 98.8 82 20 122/80 97 Nasal Cannula 2.0 98.8 12/28/17 23:56 84 12/28/17 20:00 99.7 94 20 110/73 98 Nasal Cannula 2.0 99.7 12/28/17 19:14 Nasal Cannula 2.0 28 12/28/17 19:14 Nasal Cannula 2.0 28 12/28/17 19:02 104 12/28/17 19:00 Nasal Cannula 2.0 28 12/28/17 19:00 97 Nasal Cannula 2.0 28 Intake and Output 12/28/17 12/29/17 19:00 07:00 Intake Total 120 ml 1100 ml Balance 120 ml 1100 ml Intake Oral 120 ml IV Total 1100 ml # Voids 3 Laboratory Tests 12/28/17 18:55: Sodium Level 131L, Potassium Level 3.0L, Chloride Level 98, Carbon Dioxide Level 25, Anion Gap 8, Blood Urea Nitrogen 6L, Creatinine 0.9, Estimat Glomerular Filtration Rate > 60, Glucose Level 266H, Lactic Acid Level 3.60H, Calcium Level 8.2L, Magnesium Level 1.4L, Troponin I 0.000, Hepatitis A IgM Antibody [Pending], Hepatitis B Surface Antigen [Pending], Hepatitis B Core IgM Antibody [Pending], Hepatitis C Antibody [Pending], HIV (1&2) Antibody Rapid Negative 12/29/17 07:44: Sodium Level 135L, Potassium Level 3.6, Chloride Level 103, Carbon Dioxide Level 23, Anion Gap 9, Blood Urea Nitrogen 5L, Creatinine 0.6, Estimat Glomerular Filtration Rate > 60, Glucose Level 109#H, Calcium Level 8.3L, Magnesium Level 1.7L, White Blood Count 4.8, Red Blood Count 3.50L, Hemoglobin 12.0L, Hematocrit 33.6L, Mean Corpuscular Volume 96, Mean Corpuscular Hemoglobin 34.4H, Mean Corpuscular Hemoglobin Concent 35.8, Red Cell Distribution Width 11.7, Platelet Count 68L, Mean Platelet Volume 8.1, Neutrophils (%) (Auto) , Lymphocytes (%) (Auto) , Monocytes (%) (Auto) , Eosinophils (%) (Auto) , Basophils (%) (Auto) , Differential Total Cells Counted 100, Neutrophils % (Manual) 62, Lymphocytes % (Manual) 29, Monocytes % ( Manual) 9, Eosinophils % (Manual) 0, Basophils % (Manual) 0, Band Neutrophils 0 , Platelet Estimate DecreasedL, Platelet Morphology Normal, Red Blood Cell Morphology Normal 12/29/17 13:50: Urine Legionella Antigen [Pending] Height (Feet): 5 Height (Inches): 4.00 Weight (Pounds): 140 Objective General: alert, cooperative, no distress, appears stated age Head: normocephalic, without obvious abnormality, atraumatic Eyes: conjunctivae/corneas clear. PERRL, EOM's intact Throat: lips, mucosa, and tongue normal. MMM Neck: supple, symmetrical, trachea midline, and no JVD Lungs: +rhonchi R>L Heart: regular rate and rhythm, S1, S2 normal, no murmur, click, rub or gallop Abdomen: soft, non-tender, non-distended, bowel sounds normal; no masses or organomegaly Extremities: extremities normal, atraumatic, no cyanosis or edema Pulses: 2+ and symmetric Skin: skin color, texture, turgor normal; no rashes or lesions Neurologic: grossly normal, no focal deficits Brady Juares M.D. Dec 29, 2017 17:22
[2017-12-29] MEDS ORDERED: guaiFENesin 100mg/5ml Liq ud ORAL PRN (17:30)
[2017-12-29] MEDS ORDERED: Azithromycin 500 MG in D5W 275 ML IV SCH ×4 (18:00)
[2017-12-29] MEDS: guaiFENesin ER 600mg tab ORAL SCH (18:00)
[2017-12-29 20:00] VITALS: BP 116/89
--- NOTE | 2017-12-29 23:42 | General Progress Note ---
Assessment/Plan Assessment/Plan 1. Thrombocytopenia, potentially secondary to infection of pneumonia versus antibiotics that the patient is on. --> In addition, the patient may have cirrhosis. --> We will obtain ultrasound of the abdomen as well as hepatitis panel and HIV to evaluate further. --> The patient also on antiepileptics, which can contribute to thrombocytopenia. --> Abd ultrasound reviewed and revealed probable fatty liver with right renal cyst. --> S/P Chest CT which showed right upper lobe pneumonia, trace bilateral pleural effusions, mild basal atelectasis, fatty liver. 2. Anemia due to underlying chronic disease. --> Continue to trend cbc daily. --> Mild at this time 3. Subjective fever and chills, likely secondary to pneumonia. 4. Pneumonia, right upper lobe, likely community acquired. --> On abx. Consider ID eval and recs. 5. Hypokalemia, replete potassium as needed. 6. Lactic acidosis, potentially secondary to dehydration versus pneumonia, infection, sepsis. Subjective Date patient seen: Dec 29, 2017 Constitutional: Denies: no symptoms, chills, diaphoresis, fever, malaise, weakness, other HEENT: Denies: no symptoms, eye pain, blurred vision, tearing, double vision, ear pain, ear discharge, nose pain, nose congestion, throat pain, throat swelling, mouth pain, mouth swelling, other Cardiovascular: Denies: no symptoms, chest pain, edema, irregular heart rate, lightheadedness, palpitations, syncope, other Respiratory: Denies: no symptoms, cough, orthopnea, shortness of breath, SOB with excertion, SOB at rest, sputum, stridor, wheezing, other Gastrointestinal/Abdominal: Denies: no symptoms, abdomen distended, abdominal pain, black stools, tarry stools, blood in stool, constipated, diarrhea, difficulty swallowing, nausea, poor appetite, poor fluid intake, rectal bleeding , vomiting, other Genitourinary: Denies: no symptoms, burning, discharge, frequency, flank pain, hematuria, incontinence, pain, urgency, other Hematologic/Lymphatic: Reports: anemia, other - low platelets Allergies: Coded Allergies: No Known Allergies (Unverified , 12/27/17) Subjective S/P Chest CT. Ongoing antibiotics. H/H stable. Platelets remain low Objective Last 24 Hour Vital Signs Date Time Temp Pulse Resp B/P (MAP) Pulse Ox O2 Delivery O2 Flow Rate FiO2 12/29/17 20:00 98.7 89 18 116/89 100 Nasal Cannula 2.0 98.7 12/29/17 19:05 88 20 100 Nasal Cannula 2.0 28 12/29/17 18:59 Nasal Cannula 2.0 28 12/29/17 18:59 98 Nasal Cannula 2.0 28 12/29/17 18:58 84 18 98 Nasal Cannula 2.0 28 12/29/17 18:58 28 12/29/17 16:00 98.7 80 18 107/68 96 Nasal Cannula 2.0 98.7 12/29/17 13:03 86 21 99 Nasal Cannula 2.0 28 12/29/17 13:00 28 12/29/17 12:55 89 20 97 Nasal Cannula 2.0 28 12/29/17 12:00 97.8 72 19 114/73 96 Nasal Cannula 2.0 97.8 12/29/17 08:00 98.2 72 20 113/80 98 Nasal Cannula 2.0 98.2 12/29/17 08:00 70 12/29/17 07:53 82 21 99 Nasal Cannula 2.0 28 12/29/17 07:52 36 12/29/17 07:42 Nasal Cannula 2.0 28 12/29/17 07:40 95 Nasal Cannula 2.0 28 12/29/17 07:39 76 18 95 Nasal Cannula 2.0 28 12/29/17 04:00 98.6 77 21 127/82 99 Nasal Cannula 2.0 98.6 12/29/17 03:37 82 12/29/17 01:26 82 21 99 Nasal Cannula 2.0 28 12/29/17 01:20 97 18 96 Nasal Cannula 2.0 28 12/29/17 01:20 36 12/29/17 00:00 98.8 82 20 122/80 97 Nasal Cannula 2.0 98.8 12/28/17 23:56 84 Intake and Output 12/28/17 12/29/17 19:00 07:00 Intake Total 120 ml 1100 ml Balance 120 ml 1100 ml Intake Oral 120 ml IV Total 1100 ml # Voids 3 Laboratory Tests 12/29/17 07:44: White Blood Count 4.8, Red Blood Count 3.50L, Hemoglobin 12.0L, Hematocrit 33.6L , Mean Corpuscular Volume 96, Mean Corpuscular Hemoglobin 34.4H, Mean Corpuscular Hemoglobin Concent 35.8, Red Cell Distribution Width 11.7, Platelet Count 68L, Mean Platelet Volume 8.1, Neutrophils (%) (Auto) , Lymphocytes (%) ( Auto) , Monocytes (%) (Auto) , Eosinophils (%) (Auto) , Basophils (%) (Auto) , Differential Total Cells Counted 100, Neutrophils % (Manual) 62, Lymphocytes % ( Manual) 29, Monocytes % (Manual) 9, Eosinophils % (Manual) 0, Basophils % ( Manual) 0, Band Neutrophils 0, Platelet Estimate DecreasedL, Platelet Morphology Normal, Red Blood Cell Morphology Normal, Sodium Level 135L, Potassium Level 3.6, Chloride Level 103, Carbon Dioxide Level 23, Anion Gap 9, Blood Urea Nitrogen 5L, Creatinine 0.6, Estimat Glomerular Filtration Rate > 60 , Glucose Level 109#H, Calcium Level 8.3L, Magnesium Level 1.7L 12/29/17 13:50: Urine Legionella Antigen [Pending] Height (Feet): 5 Height (Inches): 4.00 Weight (Pounds): 140 General Appearance: confused Respiratory/Chest: decreased breath sounds Abdomen: non tender, soft Edema: trace edema Amauri Restrepo Dec 29, 2017 23:42
[2017-12-30] VITALS: BP 114/89
[2017-12-30] MEDS: NS w/KCl 20mEq 1,000 ML IV SCH ×3 (03:00→13:00)
[2017-12-30 04:00] VITALS: BP 117/90
[2017-12-30] MEDS: Albuterol/Ipratropium 3ml neb HHN SCH ×2 (06:53→12:33)
[2017-12-30 08:00] VITALS: BP 120/85
[2017-12-30] MEDS: guaiFENesin ER 600mg tab ORAL SCH (08:25)
[2017-12-30] MEDS ORDERED: carBAMazepine 200mg tab ORAL SCH (09:00)
[2017-12-30 12:00] VITALS: BP 120/82
[2017-12-30] MEDS ORDERED: LEVAQUIN750 MG ORAL (14:57)
[2017-12-30] MEDS ORDERED: GUAIFENESI100 MG/5 M ORAL (14:58)
[2017-12-30] MEDS ORDERED: MUCINEX600 MG ORAL (14:58)
--- NOTE | 2017-12-30 14:58 | Discharge Instructions ---
Discharge Instructions Discharge Instructions Follow up with: Primary care doctor in 1-2 weeks. Need repeat chest x-ray in 2- 3 weeks Diet: regular Activity: resume normal activities For Congestive Heart Failure Reminder Report to your physician any weight gain of 5 pounds or more in one week. Brady Juares M.D. Dec 30, 2017 14:58
--- NOTE | 2017-12-31 09:55 | General Progress Note ---
Assessment/Plan Assessment/Plan 1. Thrombocytopenia, potentially secondary to infection of pneumonia versus antibiotics that the patient is on. --> In addition, the patient may have cirrhosis. --> We will obtain ultrasound of the abdomen as well as hepatitis panel and HIV to evaluate further. --> Both panels negative --> The patient also on antiepileptics, which can contribute to thrombocytopenia. --> Abd ultrasound reviewed and revealed probable fatty liver with right renal cyst. --> S/P Chest CT which showed right upper lobe pneumonia, trace bilateral pleural effusions, mild basal atelectasis, fatty liver. 2. Anemia due to underlying chronic disease. --> Continue to trend cbc daily. --> Mild at this time, Does not require blood transfusion 3. Subjective fever and chills, likely secondary to pneumonia. 4. Pneumonia, right upper lobe, likely community acquired. --> On abx. Consider ID eval and recs. 5. Hypokalemia, replete potassium as needed. 6. Lactic acidosis, potentially secondary to dehydration versus pneumonia, infection, sepsis. Subjective Date patient seen: Dec 30, 2017 Constitutional: Denies: no symptoms, chills, diaphoresis, fever, malaise, weakness, other HEENT: Denies: no symptoms, eye pain, blurred vision, tearing, double vision, ear pain, ear discharge, nose pain, nose congestion, throat pain, throat swelling, mouth pain, mouth swelling, other Cardiovascular: Denies: no symptoms, chest pain, edema, irregular heart rate, lightheadedness, palpitations, syncope, other Respiratory: Denies: no symptoms, cough, orthopnea, shortness of breath, SOB with excertion, SOB at rest, sputum, stridor, wheezing, other Gastrointestinal/Abdominal: Denies: no symptoms, abdomen distended, abdominal pain, black stools, tarry stools, blood in stool, constipated, diarrhea, difficulty swallowing, nausea, poor appetite, poor fluid intake, rectal bleeding , vomiting, other Genitourinary: Denies: no symptoms, burning, discharge, frequency, flank pain, hematuria, incontinence, pain, urgency, other Hematologic/Lymphatic: Reports: anemia Allergies: Coded Allergies: No Known Allergies (Unverified , 12/27/17) Subjective Plt low. No acute distress. Resting in bed. Objective Last 24 Hour Vital Signs Date Time Temp Pulse Resp B/P (MAP) Pulse Ox O2 Delivery O2 Flow Rate FiO2 12/30/17 12:41 78 20 99 Room Air 21 12/30/17 12:35 78 18 98 Room Air 21 12/30/17 12:00 98.4 71 18 120/82 95 Room Air 98.4 Intake and Output 12/30/17 12/31/17 19:00 07:00 Intake Total 680 ml Balance 680 ml Intake Oral 480 ml IV Total 200 ml # Voids 2 # Bowel Movements 1 Height (Feet): 5 Height (Inches): 4.00 Weight (Pounds): 140 General Appearance: no apparent distress Respiratory/Chest: decreased breath sounds Abdomen: non tender, soft Edema: trace edema Skin: warm/dry Amauri Restrepo Dec 31, 2017 09:55
--- NOTE | 2017-12-31 19:58 | Cardiology Report ---
APPROVED REPORT EXAM: Two-dimensional and M-mode echocardiogram with Doppler and color Doppler. INDICATION Chest Pain M-Mode DIMENSIONS IVSd1.4 (0.7-1.1cm)Left Atrium (MM)3.6 (1.6-4.0cm) LVDd4.3 (3.5-5.6cm)Aortic Root3.9 (2.0-3.7cm) PWd.5 (0.7-1.1cm)Aortic Cusp Exc.2.4 (1.5-2.0cm) LVDs2.9 (2.5-4.0cm) PWs2.1 cm Normal left ventricular chamber size, systolic function and wall motion. Left ventricular ejection fraction estimated to be 55-60 %. Mild left ventricular hypertrophy. No evidence of pericardial effusion. Left atrial size at upper limits of normal. Right cardiac chamber sizes are within normal limits. Mild focal aortic valve sclerosis with adequate cusp excursion. Mildly thickened mitral valve leaflets with normal excursion. Mild mitral annulus and aortic root calcification. Mild aortic root dilatation. Normal pulmonic valve structure. Normal tricuspid valve structure. IVC at normal size and collapsing with respiration. A color flow and spectral Doppler study was performed and revealed: Trace aortic insufficiency. Trace mitral regurgitation. Mitral inflow indicate normal left ventricular diastolic function. Trace tricuspid regurgitation. Tricuspid systolic velocities suggests peak right ventricular systolic pressure of 20 mmHg.
--- NOTE | 2017-12-31 20:20 | Cardiology Report ---
APPROVED REPORT EKG Measurement Heart [id number] Normal sinus rhythm Normal ECG
--- NOTE | 2018-01-01 14:46 | Discharge Summary ---
Discharge Summary Hospital Course Date of Admission Dec 27, 2017 at 13:44 Date of Discharge Dec 30, 2017 at 17:00 Admitting Diagnosis pneumonia HPI Sarthak Bah is a 57 year old male who was admitted on Dec 27, 2017 at 13:44 for Pneumonia Hospital Course [id number] Discharge Discharge Disposition Patient was discharged to Home (01) Discharge Diagnoses: Discharge Instructions Discharge Instructions Follow up with: Primary care doctor in 1-2 weeks. Need repeat chest x-ray in 2- 3 weeks Activity: resume normal activities Loli Javed NP Jan 01, 2018 14:46
--- NOTE | 2018-01-02 05:15 | Discharge Summary 2 SIG ---
DATE OF ADMISSION: 12/27/2017 DATE OF DISCHARGE: 12/30/2017 [employer]: 1. Amauri Restrepo M.D. 2. Caterina Lopez M.D. BRIEF HOSPITAL COURSE: The patient is a 57-year-old male with past medical history of seizures on antiepileptic medications presented to ED due to intermittent chest pain accompanied with shortness of breath and cough with subjective fever for two days. He also reported nausea with emesis for one to two days. On evaluation at ED, chest x-ray showed wedge infiltrate on the right upper lung. WBC was 10.3. Lactic acid 3.4 and potassium was 3.3. EKG done was without any injury. He was given IV hydration, breathing treatment, and was admitted to telemetry for evaluation of sepsis, hypokalemia, pneumonia, and chest pain. He had thrombocytopenia, platelet count 54. Avoid heparin. The patient with possibly a bone marrow suppression due to Tegretol. Blood counts were monitored. He had a repeat EKG that showed normal sinus rhythm. He was given IV ceftriaxone and azithromycin likely for new community-acquired pneumonia. He was given Mucinex. Chest CT done showed upper lobe pneumonia with trace bilateral pleural effusion and mild basilar atelectasis. Abdominal ultrasound done revealed fatty liver with right renal cyst. He was given potassium supplements. Sputum culture showed normal upper respiratory kesha. Blood cultures did not isolate any growth. Influenza A and B were negative. Leukocytosis resolved. He was eventually cleared for discharge and may need repeat chest x-ray in two to three weeks as outpatient. FINAL DIAGNOSES: 1. Severe sepsis. 2. Lobar pneumonia. 3. Lactic acidosis. 4. Thrombocytopenia. 5. Seizure disorder. 6. Hypokalemia. 7. Hyponatremia. 8. Hypomagnesemia. DISPOSITION: The patient was discharged home. DISCHARGE MEDICATIONS: Refer to medication list. Continue with levofloxacin 750 mg for five more days. DISCHARGE INSTRUCTIONS: Followup with PMD in one to two weeks. May need repeat chest x-ray in two to three weeks. DIET: Regular. ACTIVITY: Resume normal activity. Brady Juares M.D. I have been assigned to dictate discharge summary on this account and I was not involved in the patient's management. Loli Javed N.P. DR: Rigo JOB#: [id number] CC: STEPH
== END 2017-12-30 17:00 | disposition home or self-care (01) | DRG 720 ==
LOC: EDBD 11:52 → EMR 12:45 → 4E 13:44 → EDBEDREQ 13:56 → 2E 12-28 17:29 → 3E 12-29 16:12
DX: A41.9 Sepsis, unspecified organism (principal); J18.9 Pneumonia, unspecified organism; D69.6 Thrombocytopenia, unspecified; E87.1 Hypo-osmolality and hyponatremia; E83.42 Hypomagnesemia; K76.0 Fatty (change of) liver, not elsewhere classified; E86.0 Dehydration; R65.20 Severe sepsis without septic shock; E87.6 Hypokalemia; D63.8 Anemia in other chronic diseases classified elsewhere; Z87.891 Personal history of nicotine dependence; G40.909 Epilepsy, unspecified, not intractable, without status epilepticus; N28.1 Cyst of kidney, acquired
CPT/HCPCS: 36415; 71045; 71046; 71260; 76700; 80048; 80053; 81003; 82164; 82248; 82550; 83605; 83735; 83880; 84484; 85007; 85025; 85610; 85730; 86703; 86705; 86709; 86710; 86803; 87040; 87070; 87205; 87340; 93005; 93306; 94640; 94664; 94760; 99285; J2405; J7620; J8499